=== PATIENT | female | born 2000 | race Two or more races ===

== ENCOUNTER 2023-05-11 10:40 | Observation (INO) | payer OTHER, SELFPAY ==
[2023-05-11 10:55] VITALS: BP 113/77; BMI 22.8
[2023-05-11 11:17] LABS: Urine Albumin Negative (Neg - Trace); Urine Bilirubin Negative (Negative); Urine Character Clear (Clear); Urine Color Yellow; Urine Glucose Negative (Negative); Urine Ketone 3+ (Negative); Urine Leukocyte Negative (Negative); Urine Nitrite Negative (Negative); Urine Occult Blood Negative (Negative); Urine Specific Gravity 1.015 (<1.030); Urine Urobilinogen Negative (Neg - 1+); Urine pH 6.5 (5.0-9.0)
== END 2023-05-11 12:15 | disposition home or self-care (01) ==
LOC: LDRP 10:40
PROVIDERS: ADMITTING PHYSICIAN Obstetrics & Gynecology
DX: O47.03 False labor before 37 completed weeks of gestation, third trimester (principal); E86.0 Dehydration; Z3A.35 35 weeks gestation of pregnancy; R10.9 Unspecified abdominal pain; Z79.82 Long term (current) use of aspirin
CPT/HCPCS: 81003; 87086; G0378